=== PATIENT | male | born 1955 | race Two or more races ===

== ENCOUNTER 2016-02-27 19:16 | Emergency (ER) | payer MEDICARE, MEDICAID ==
[~2016-02-27] VITALS: Ht 177.8 cm; Wt 103.9 kg
[~2016-02-27 19:16] MED LIST: SITA1TAB2 PO
[2016-02-27 22:02] VITALS: BP 121/76
== END 2016-02-27 22:03 | disposition home or self-care (01) ==
LOC: ER 19:19
DX: S40.011A Contusion of right shoulder, initial encounter (principal); E11.9 Type 2 diabetes mellitus without complications; Z86.73 Personal history of transient ischemic attack (TIA), and cerebral infarction without residual deficits; Z98.890 Other specified postprocedural states; W18.2XXA Fall in (into) shower or empty bathtub, initial encounter; Y93.E1 Activity, personal bathing and showering; Y92.031 Bathroom in apartment as the place of occurrence of the external cause; Y99.8 Other external cause status
CPT/HCPCS: 72070; 73030; 99284; A4606; Z7610

== ENCOUNTER 2017-06-13 00:41 | Emergency (ER) | payer MEDICARE, MEDICAID ==
[~2017-06-13] VITALS: Ht 170.2 cm; Wt 81.6 kg
--- NOTE | 2017-06-13 01:00 | NUR ---
PT BB SON FROM HOME C/O HITTING HEAD ON SIDE OF TV STAND WHILE TRYING TO GET UP. DENIES KO. +HEAD LAC. -N/V/D. -DIZZINESS. NO PAIN. VSS. NAD NOTED. SKIN WARM AND DRY. WOUND CARE DONE.
[2017-06-13] MEDS ORDERED: TDAP [DIPH/PERTUSSIS/TET] 0.5 ML VIAL IM ONE ×2 (01:16→01:30)
--- NOTE | 2017-06-13 01:18 | NUR ---
patient to ct.
--- NOTE | 2017-06-13 02:25 | NUR ---
Patient discharged to home in stable condition. Written and verbal after care instructions given. Patient verbalizes understanding of instruction. Patient transferred to wheelchair by family to private car going home. vss. nad noted. no further complaints. Steri strips intact, wound clean and dry. no bleeding noted.
[2017-06-13 02:26] VITALS: BP 126/76
== END 2017-06-13 02:27 | disposition home or self-care (01) ==
LOC: ER 00:46
DX: S00.03XA Contusion of scalp, initial encounter (principal); G11.9 Hereditary ataxia, unspecified; E11.9 Type 2 diabetes mellitus without complications; W05.0XXA Fall from non-moving wheelchair, initial encounter; W01.0XXA Fall on same level from slipping, tripping and stumbling without subsequent striking against object, initial encounter; Y93.89 Activity, other specified; Y92.89 Other specified places as the place of occurrence of the external cause; Y99.8 Other external cause status
CPT/HCPCS: 70450; 90471; 90715; 99284; A4606; Z7610

== ENCOUNTER 2018-01-26 22:06 | Emergency (ER) | payer MEDICARE, MEDICAID ==
[~2018-01-26] VITALS: Ht 162.6 cm; Wt 74.8 kg
[2018-01-26 22:15] VITALS: BP 123/68
[2018-01-27 01:08] LABS: APPEARANCE,URINE SL CLOUDY (CLEAR); BILIRUBIN,URINE NEGATIVE (NEGATIVE); BLOOD, URINE 3+ Ery/uL (NEGATIVE); COLOR,URINE YELLOW (YELLOW); KETONES,URINE NEGATIVE (NEGATIVE); LEUKOCYTE ESTERASE ,URINE NEGATIVE (NEGATIVE); NITRITE, URINE POSITIVE (NEGATIVE); PH,URINE 5.5 (5.0-8.0); PROTEIN,URINE 2+ mg/dl (NEGATIVE); UGLUCOSE TRACE mg/dL (NEGATIVE)
[2018-01-27 01:15] LABS: BACTERIA,URINE Few /HPF (None Seen); RBC,URINE TOO NUMEROUS TO COUN /HPF (0-2)
[2018-01-27 01:16] LABS: SQUAMOUS EPITHELIAL CELL,UR Rare /HPF (None Seen)
--- NOTE | 2018-01-27 01:50 | NUR ---
[employer] CATHETER REMOVED PER CARE ATTENDANT MARSII. NO S/S OF DISTRESS NOTED UPON REMOVAL.
== END 2018-01-27 02:07 | disposition home or self-care (01) ==
LOC: ER 22:20
DX: T83.511A Infection and inflammatory reaction due to indwelling urethral catheter, initial encounter (principal); N39.0 Urinary tract infection, site not specified; E11.9 Type 2 diabetes mellitus without complications; Z98.890 Other specified postprocedural states; Z79.84 Long term (current) use of oral hypoglycemic drugs
CPT/HCPCS: 81001; 87086; 99283; A4606 ×2; 81000-TC; 87186-TC; Z7610

== ENCOUNTER 2018-04-21 15:09 | Emergency (ER) | payer MEDICARE, MEDICAID ==
[~2018-04-21] VITALS: Ht 157.5 cm; Wt 99.8 kg
--- NOTE | 2018-04-21 15:12 | NUR ---
AAOX3, BIB FAMILY VIA WHEELCHAIR FROM HOME C/O RIGHT RIB CAGE PAIN S/P SLIPPED AND FELL 2.5 HRS AGO IN THE SHOWER ROOM. -KO. PAIN GETS WORSE ON MOVEMENT. SKIN IS WARM AND DRY. NO RESP/CARDIAC DISTRESS NOTED. AWAITING MD FOR EVAL.
[2018-04-21] MEDS ORDERED: DIATR MEGLU/DIATRIZOATE SODIUM 30 ML BOTTLE (GASTROGRAPHIN) PO ONE (16:30)
--- NOTE | 2018-04-21 16:45 | NUR ---
INCENTIVE SPIROMETER GIVEN TO THE PATIENT. EXPLAINED DIRECTION ON HOW TO USE. PATIENT VERBALIZED UNDERSTANDING.
[2018-04-21] MEDS ORDERED: DIATR MEGLU/DIATRIZOATE SODIUM 30 ML BOTTLE (GASTROGRAPHIN) ONE (17:43)
[2018-04-21 19:35] VITALS: BP 142/84
--- NOTE | 2018-04-21 20:06 | NUR ---
Patient discharged to home in stable condition. Written and verbal after care instructions given. Patient verbalizes understanding of instruction.
== END 2018-04-21 20:48 | disposition home or self-care (01) ==
LOC: ER 15:09
DX: S20.211A Contusion of right front wall of thorax, initial encounter (principal); R10.11 Right upper quadrant pain; I10 Essential (primary) hypertension; E11.9 Type 2 diabetes mellitus without complications; M62.81 Muscle weakness (generalized); Z98.890 Other specified postprocedural states; G31.89 Other specified degenerative diseases of nervous system; W01.0XXA Fall on same level from slipping, tripping and stumbling without subsequent striking against object, initial encounter; Y93.89 Activity, other specified; Y92.002 Bathroom of unspecified non-institutional (private) residence as the place of occurrence of the external cause; Y99.8 Other external cause status
CPT/HCPCS: 70450; 71111; 74176; 82962; 93005; 99284; A4606; Q9963